=== PATIENT | male | born 1950 | race Caucasian/White ===

== ENCOUNTER 2017-06-14 12:31 | Observation (INO) | payer MEDICARE, OTHER ==
[2017-06-14 12:32] VITALS: BP 158/86; PULSE 105; RESP 18; TEMP 98.8; O2SAT 96
[2017-06-14] MEDS ORDERED: DICL75TA PO (13:01)
[2017-06-14] MEDS ORDERED: TERA10CA3 PO (13:01)
[2017-06-14] MEDS ORDERED: OMEP20TA93 PO (13:01)
[2017-06-14] MEDS ORDERED: MELA5 PO (13:01)
[2017-06-14] MEDS ORDERED: ATOR40TA16 PO (13:01)
[2017-06-14] MEDS ORDERED: FINA5TAB2 PO (13:01)
[2017-06-14] MEDS ORDERED: BACL10TA PO (13:01)
--- NOTE | 2017-06-14 13:03 | PD ---
HPI Chief Complaint: Chest Pain Time Seen by Provider: 12:45 Travel History International Travel<30 days: No Contact w/Intl Traveler<30days: No Traveled to known affect area: No History of Present Illness HPI 66yo M with PMH of BPH, HLD, HTN presents to the ED with c/o chest pain. States it has been there for about 3 weeks but is getting worst. Pain is dull, midsternal and then in left chest there is a sharp pain. Pain is worst with movement. Associated with nausea, diaphoresis, sob. Denies any fever, vomiting , abdominal pain, focal weakness. Said he try to go to PMD but they sent him here. 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 Has had chest pain before but never lasting this long. Denies any PE/DVT. History Past Medical History Influenza Vaccination: Yes Social History Alcohol Use: No Tobacco Use: No Allergies-Medications (Allergen,Severity, Reaction): Coded Allergies: Iodinated Contrast- Oral and IV Dye (Verified Allergy, Unknown, 06/14/17) shellfish derived (Verified Allergy, Unknown, 06/14/17) Reported Meds & Prescriptions Reported Meds & Active Scripts Active Reported Melatonin 5 Mg Tab 3 Mg PO HS Finasteride 5 Mg Tab 5 Mg PO DAILY Do not crush. Terazosin (Terazosin HCl) 10 Mg Cap 10 Mg PO BID Atorvastatin (Atorvastatin Calcium) 40 Mg Tab 40 Mg PO HS Diclofenac Sodium DR (Diclofenac Sodium) 75 Mg Tabdr 75 Mg PO BID Baclofen 10 Mg Tab 10 Mg PO BID PRN Omeprazole 20 Mg Tab 20 Mg PO BID Review of Systems Except as stated in HPI: all other systems reviewed are Neg Physical Exam Narrative GENERAL: 66yo M in mild distress. SKIN: Focused skin assessment warm/dry. HEAD: Atraumatic. Normocephalic. EYES: Pupils equal and round. No scleral icterus. No injection or drainage. ENT: No nasal bleeding or discharge. Mucous membranes pink and moist. NECK: Trachea midline. No JVD. CARDIOVASCULAR: Regular rate and rhythm. No murmur appreciated. RESPIRATORY: No accessory muscle use. Clear to auscultation. Breath sounds equal bilaterally. GASTROINTESTINAL: Abdomen soft, non-tender, nondistended. MUSCULOSKELETAL: No obvious deformities. No clubbing. No cyanosis. No edema. No calf tenderness. NEUROLOGICAL: Awake and alert. No obvious cranial nerve deficits. Motor grossly within normal limits. Normal speech. PSYCHIATRIC: Appropriate mood and affect; insight and judgment normal. Data Data Last Documented VS Vital Signs Date Time Temp Pulse Resp B/P (MAP) Pulse Ox O2 Delivery O2 Flow Rate FiO2 06/14/17 14:09 96 17 149/63 (91) 95 Room Air 06/14/17 12:32 98.8 Orders Orders Basic Metabolic Panel (Bmp) (06/14/17 12:55) B-Type Natriuretic Peptide (06/14/17 12:55) Complete Blood Count With Diff (06/14/17 12:55) Magnesium (Mg) (06/14/17 12:55) Prothrombin Time / Inr (Pt) (06/14/17 12:55) Act Partial Throm Time (Ptt) (06/14/17 12:55) Troponin I (06/14/17 12:55) Chest, Single Ap (06/14/17 12:55) Aspirin (Aspirin) (06/14/17 13:15) Nitroglycerin Sl (Nitrostat Sl) (06/14/17 13:15) Electrocardiogram (06/14/17 12:47) Admit Order (Ed Use Only) (06/14/17 15:06) Labs Laboratory Tests Test 06/14/17 13:00 White Blood Count 3.3 TH/MM3 Red Blood Count 5.00 MIL/MM3 Hemoglobin 14.1 GM/DL Hematocrit 42.2 % Mean Corpuscular Volume 84.3 FL Mean Corpuscular Hemoglobin 28.2 PG Mean Corpuscular Hemoglobin Concent 33.5 % Red Cell Distribution Width 14.2 % Platelet Count 117 TH/MM3 Mean Platelet Volume 8.6 FL Neutrophils (%) (Auto) 65.6 % Lymphocytes (%) (Auto) 24.5 % Monocytes (%) (Auto) 7.9 % Eosinophils (%) (Auto) 1.6 % Basophils (%) (Auto) 0.4 % Neutrophils # (Auto) 2.2 TH/MM3 Lymphocytes # (Auto) 0.8 TH/MM3 Monocytes # (Auto) 0.3 TH/MM3 Eosinophils # (Auto) 0.1 TH/MM3 Basophils # (Auto) 0.0 TH/MM3 CBC Comment DIFF FINAL Differential Comment Prothrombin Time 10.6 SEC Prothromb Time International Ratio 1.0 RATIO Activated Partial Thromboplast Time 24.3 SEC Blood Urea Nitrogen 23 MG/DL Creatinine 1.12 MG/DL Random Glucose 127 MG/DL Calcium Level 8.8 MG/DL Magnesium Level 2.3 MG/DL Sodium Level 140 MEQ/L Potassium Level 4.0 MEQ/L Chloride Level 108 MEQ/L Carbon Dioxide Level 25.7 MEQ/L Anion Gap 6 MEQ/L Estimat Glomerular Filtration Rate 65 ML/MIN Troponin I LESS THAN 0.02 NG/ML B-Type Natriuretic Peptide 51 PG/ML MDM Medical Decision Making Medical Screen Exam Complete: Yes Emergency Medical Condition: Yes Interpretation(s) EKG: Sinus tachycardia at 100bpm. LAD. No ST segment elevation or depression. Differential Diagnosis ACS vs. musculoskeletal pain vs. GERD Narrative Course 66yo M with atypical chest pain. Labs reviewed, WBC 3.3. Troponin negative. BNP normal. CXR negative. Pt given aspirin 325mg and sublingual nitro for pain. Pt to be admitted to chest pain center for serial EKG and cardiac enzymes. Diagnosis Primary Impression: Chest pain Qualified Codes: R07.9 - Chest pain, unspecified Admitting Information Admitting Physician Requests: Deepali Ramos DO Jun 14, 2017 13:03
[2017-06-14 13:15] LABS: AUTOMATED NEUTROPHIL # 2.2 TH/MM3 (1.8-7.7); BASOPHIL % 0.4 % (0.0-2.0); EOSINOPHIL # 0.1 TH/MM3 (0-0.4); EOSINOPHIL % 1.6 % (0.0-4.0); HEMATOCRIT 42.2 % (39.0-51.0); HEMO FLAGS DIFF FINAL; LYMPH % 24.5 % (9.0-44.0); LYMPHOCYTE # 0.8 TH/MM3 (1.0-4.8); MEAN CELL VOLUME 84.3 FL (80.0-100.0); MEAN CORPUSCULAR HEMOGLOBIN 28.2 PG (27.0-34.0); MEAN CORPUSCULAR HGB CONC 33.5 % (32.0-36.0); MONO % 7.9 % (0.0-8.0); NEUT % 65.6 % (16.0-70.0); PLATELET COUNT 117 TH/MM3 (150-450); RED CELL DISTRIBUTION WIDTH 14.2 % (11.6-17.2); WHITE BLOOD COUNT 3.3 TH/MM3 (4.0-11.0)
[2017-06-14] MEDS ORDERED: ASPIRIN 325 MG TAB PO ONE (13:15)
[2017-06-14 13:25] LABS: APTT (PATIENT) 24.3 SEC (24.3-30.1); PROTHROMBIN TIME - PATIENT 10.6 SEC (9.8-11.6)
--- NOTE | 2017-06-14 13:30 | RADRPT ---
EXAM DATE/TIME: 06/14/2017 13:10 [facility] COMPARISON: No previous studies available for comparison. INDICATIONS : Chest pain. MEDICAL HISTORY : None. SURGICAL HISTORY : None. ENCOUNTER: Initial ACUITY: 1 day PAIN SCORE: 10/10 LOCATION: Bilateral chest FINDINGS: Portable AP view of the chest demonstrates a normal-sized cardiac silhouette. No effusion, consolidat ion, or pneumothorax is visualized. The bones and soft tissues demonstrate no acute abnormality. CONCLUSION: No acute cardiopulmonary abnormality is identified. Adrian Patel MD on June 14, 2017 at 13:26 Board Certified Radiologist. This report was verified electronically.
[2017-06-14 13:32] LABS: ANION GAP 6 MEQ/L (5-15); BICARBONATE 25.7 MEQ/L (21.0-32.0); BLOOD UREA NITROGEN 23 MG/DL (7-18); CHLORIDE 108 MEQ/L (98-107); GLOMERULAR FILTRATION RATE 65 ML/MIN (>89); MAGNESIUM 2.3 MG/DL (1.5-2.5); SODIUM (NA) 140 MEQ/L (136-145)
[2017-06-14] MEDS: NITROGLYCERIN 0.4 MG SL 25 TABS/BTL SL PRN ×3 (13:38→14:11)
[2017-06-14 14:09] VITALS: BP 149/63; PULSE 96; RESP 17; O2SAT 95
[2017-06-14] MEDS ORDERED: ACETAMINOPHEN/HYDROcodone 325 MG/7.5 MG TAB PO PRN (15:30)
[2017-06-14] MEDS ORDERED: ACETAMINOPHEN 500 MG CPLT PO PRN (15:30)
[2017-06-14] MEDS ORDERED: ONDANSETRON HCL 4 MG/2 ML VIAL IV PUSH PRN (15:30)
--- NOTE | 2017-06-14 15:57 | HHI.HP ---
[facility] Primary Care Physician Cullen Hopson MD Chief Complaint Chest pain History of Present Illness This is a 66-year-old male that presents to ED via private vehicle with history of BPH, hyperlipidemia with a complaint of chest discomfort. Patient has had a substernal chest discomfort constantly for 3 weeks. Found nothing to really worsen or improve it at home however he states he was given subluminal nitroglycerin in the ED and it has seemed to help however it is still present. Doesn't seem to be exertional. States he works out on a treadmill and elliptical and it has not worsened over last 3 weeks. Has occasional shortness of breath. Denies diaphoresis or nausea. Denies prior history of coronary artery disease. Denies family history of CAD. Patient quit smoking cigarettes 4 years ago. Review of Systems General: Patient denies fevers, chills recent, and recent travel HEENT: Patient denies headache, sore throat, difficulty swallowing. Cardiovascular: Has the chest discomfort as mentioned above. Denies sensation of heart beating rapidly or irregularly. No syncope. Denies diaphoresis. Respiratory: Occasional shortness of breath. Denies shortness of breath or inspirational chest discomfort. Denies coughing wheezing or hemoptysis. GI: Patient denies nausea, vomiting, diarrhea, abdominal pain, bloody stools. Musculoskeletal: Patient denies joint pain or edema. Denies calf pain or edema. Neurovascular: Patient denies numbness, tingling, weakness in extremities. Denies headache. Endocrine: Denies polyuria and polydipsia. Hematologic: Denies easy bruising. Skin: Denies rash or itching. Past Family Social History Allergies: Coded Allergies: Iodinated Contrast- Oral and IV Dye (Verified Allergy, Unknown, 06/14/17) shellfish derived (Verified Allergy, Unknown, 06/14/17) Past Medical History BPH, GERD, and hyperlipidemia. Denies diabetes, hypertension, and CAD. Past Surgical History Noncontributory. Reported Medications Reported Meds & Active Scripts Active Reported Melatonin 5 Mg Tab 3 Mg PO HS Finasteride 5 Mg Tab 5 Mg PO DAILY Do not crush. Terazosin (Terazosin HCl) 10 Mg Cap 10 Mg PO BID Atorvastatin (Atorvastatin Calcium) 40 Mg Tab 40 Mg PO HS Diclofenac Sodium DR (Diclofenac Sodium) 75 Mg Tabdr 75 Mg PO BID Baclofen 10 Mg Tab 10 Mg PO BID PRN Omeprazole 20 Mg Tab 20 Mg PO BID Active Ordered Medications Current Medications Medications (Trade) Dose Ordered Sig/Kathleen Route Start Time Stop Time Status Last Admin (Nitrostat Sl) 0.4 mg Q5M PRN SL 06/14/17 13:15 06/14/17 14:11 (Tylenol) 500 mg Q4H PRN PO 06/14/17 15:30 ([place] 7.5-325 Mg) 1 tab Q4H PRN PO 06/14/17 15:30 (Zofran Inj) 4 mg Q6H PRN IV PUSH 06/14/17 15:30 Family History Denies family history of CAD. Social History Patient quit smoking 4 years ago. Denies alcohol or illicit drug use. Physical Exam Vital Signs Vital Signs Date Time Temp Pulse Resp B/P (MAP) Pulse Ox O2 Delivery O2 Flow Rate FiO2 06/14/17 14:09 96 17 149/63 (91) 95 Room Air 06/14/17 12:32 98.8 105 18 158/86 (110) 96 Physical Exam GENERAL: This is a well-nourished, well-developed patient, in no apparent distress. Patient speaks in clear complete sentences. Patient is pleasant. HEENT: Head is atraumatic and normocephalic. Neck is supple without lymphadenopathy and trachea is midline. No JVD or carotid bruits. CARDIOVASCULAR: Regular rate and rhythm without murmurs, gallops, or rubs. RESPIRATORY: Clear to auscultation. Breath sounds equal bilaterally. No wheezes , rales, or rhonchi. Chest wall is nontender. No use of accessory muscles. GASTROINTESTINAL: Abdomen is nontender, nondistended. Abdomen soft. No obvious pulsatile mass or bruit. No CVA tenderness. Strong femoral pulses bilaterally. Normal bowel sounds in all quadrants. MUSCULOSKELETAL: Patient is moving upper and lower extremities freely. No calf tenderness or edema, no Homans sign. Strong pulses in upper and lower extremities. NEUROLOGICAL: Patient is alert and oriented. Cranial nerves 2-12 are grossly intact. No focal deficits and speech is clear. SKIN: No rash and turgor is normal. Laboratory Laboratory Tests Test 06/14/17 13:00 White Blood Count 3.3 Red Blood Count 5.00 Hemoglobin 14.1 Hematocrit 42.2 Mean Corpuscular Volume 84.3 Mean Corpuscular Hemoglobin 28.2 Mean Corpuscular Hemoglobin Concent 33.5 Red Cell Distribution Width 14.2 Platelet Count 117 Mean Platelet Volume 8.6 Neutrophils (%) (Auto) 65.6 Lymphocytes (%) (Auto) 24.5 Monocytes (%) (Auto) 7.9 Eosinophils (%) (Auto) 1.6 Basophils (%) (Auto) 0.4 Neutrophils # (Auto) 2.2 Lymphocytes # (Auto) 0.8 Monocytes # (Auto) 0.3 Eosinophils # (Auto) 0.1 Basophils # (Auto) 0.0 CBC Comment DIFF FINAL Differential Comment Prothrombin Time 10.6 Prothromb Time International Ratio 1.0 Activated Partial Thromboplast Time 24.3 Blood Urea Nitrogen 23 Creatinine 1.12 Random Glucose 127 Calcium Level 8.8 Magnesium Level 2.3 Sodium Level 140 Potassium Level 4.0 Chloride Level 108 Carbon Dioxide Level 25.7 Anion Gap 6 Estimat Glomerular Filtration Rate 65 Troponin I LESS THAN 0.02 B-Type Natriuretic Peptide 51 Result Diagram: 06/14/17 1300 06/14/17 1300 Imaging Last 48 hours Impressions Chest X-Ray 06/14/17 1255 Signed Impressions: Service Date/Time: Wednesday, June 14, 2017 13:10 - CONCLUSION: No acute cardiopulmonary abnormality is identified. Adrian Patel MD Course EKGs have sinus rhythm without significant ST segment depression or elevation. Caprini VTE Risk Assessment Caprini VTE Risk Assessment: Mod/High Risk (score >= 2) Caprini Risk Assessment Model Point Value = 1 Point Value = 2 Point Value = 3 Point Value = 5 Age 41-60 Minor surgery BMI > 25 kg/m2 Swollen legs Varicose veins or History of unexplained or recurrent spontaneous Oral contraceptives or hormone replacement Sepsis (< 1 month) Serious lung disease, including pneumonia (< 1 month) Abnormal pulmonary function Acute myocardial infarction Congestive heart failure (< 1 month) History of inflammatory bowel disease Medical patient at bed rest Age 61-74 Arthroscopic surgery Major open surgery (> 45 min) Laparoscopic surgery (> 45 min) Malignancy Confined to bed (> 72 hours) Immobilizing plaster cast Central venous access Age >= 75 History of VTE Family history of VTE Factor V Leiden Prothrombin [id number] Lupus anticoagulant Anticardiolipin antibodies Elevated serum homocysteine Heparin-induced thrombocytopenia Other congenital or acquired thrombophilia Stroke (< 1 month) Elective arthroplasty Hip, pelvis, or leg fracture Acute spinal cord injury (< 1 month) Prophylaxis Regimen Total Risk Factor Score Risk Level Prophylaxis Regimen 0-1 Low Early ambulation 2 Moderate Order ONE of the following: *Sequential Compression Device (SCD) *Heparin 5000 units SQ BID 3-4 Higher Order ONE of the following medications: *Heparin 5000 units SQ TID *Enoxaparin/Lovenox 40 mg SQ daily (WT < 150 kg, CrCl > 30 mL/min) *Enoxaparin/Lovenox 30 mg SQ daily (WT < 150 kg, CrCl > 10-29 mL/min) *Enoxaparin/Lovenox 30 mg SQ BID (WT < 150 kg, CrCl > 30 mL/min) AND/OR *Sequential Compression Device (SCD) 5 or more Highest Order ONE of the following medications: *Heparin 5000 units SQ TID (Preferred with Epidurals) *Enoxaparin/Lovenox 40 mg SQ daily (WT < 150 kg, CrCl > 30 mL/min) *Enoxaparin/Lovenox 30 mg SQ daily (WT < 150 kg, CrCl > 10-29 mL/min) *Enoxaparin/Lovenox 30 mg SQ BID (WT < 150 kg, CrCl > 30 mL/min) AND *Sequential Compression Device (SCD) Assessment and Plan Assessment and Plan * Chest pain: History of 3 weeks of constant chest discomfort appears to be atypical. Seen by Dr. Gerald Johnson of cardiology and the chest and center. Will undergo a Nigel protocol ETT and CT of the chest. Patient be discharged home with instructions to follow-up with PCP if these are unremarkable. * Hyperlipidemia: Continue current medication. Patient is stable this time. Is agreeable to this plan. Philip Mehta Jun 14, 2017 15:57
[2017-06-14 16:51] VITALS: BP 124/75; PULSE 77; RESP 18; TEMP 98.1; O2SAT 95; O2SAT 96
--- NOTE | 2017-06-14 17:00 | HHI.DCPOC ---
Discharge Care Plan Diagnosis: (1) Chest pain (2) Hyperlipidemia Goals to Promote Your Health * To prevent worsening of your condition and complications * To maintain your health at the optimal level Directions to Meet Your Goals Take your medications as prescribed Follow your dietary instruction Follow activity as directed Keep your appointments as scheduled Take your immunizations and boosters as scheduled If your symptoms worsen call your PCP, if no PCP go to Urgent Care Center or Emergency Room Smoking is Dangerous to Your Health. Avoid second hand smoke Call the 24-hour hour crisis hotline for domestic abuse at Philip Mehta Jun 14, 2017 17:00
--- NOTE | 2017-06-14 17:37 | RADRPT ---
EXAM DATE/TIME: 06/14/2017 17:20 [facility] COMPARISON: No previous studies available for comparison. INDICATIONS : Substernal chest pain for three days. RADIATION DOSE: 9.59 CTDIvol (mGy) ; Patient body habitus MEDICAL HISTORY : Hypertension. SURGICAL HISTORY : Cholecystectomy. ENCOUNTER: Initial ACUITY: 3 days PAIN SCALE: 5/10 LOCATION: substernal chest TECHNIQUE: Volumetric scanning of the chest was performed. Using automated exposure control and adjustment of t he mA and/or kV according to patient size, radiation dose was kept as low as reasonably achievable to obtain optimal diagnostic quality images. DICOM format image data is available electronically for r eview and comparison. Follow-up recommendations for detected pulmonary nodules are based at a minimum on nodule size and pa tient risk factors according to Fleischner Society Guidelines. FINDINGS: LUNGS: There is no consolidation or pneumothorax. There is a calcified granuloma in the right midlung zone. In the left upper lobe abutting the left pulmonary artery is a 9 mm nodule with eccentric calcificati on. It has smooth margins. PLEURAE: There is no pleural thickening or pleural effusion. MEDIASTINUM: The heart and great vessels demonstrate no acute abnormality. There are calcified mediastinal and ri ght hilar lymph nodes. AXILLAE: Within normal limits. No lymphadenopathy. MUSCULOSKELETAL: Degenerative changes are present throughout the thoracic spine. MISCELLANEOUS: The visualized upper abdominal organs demonstrate no acute abnormality. Patient is postcholecystectom y. Spleen is mildly enlarged measuring 14.3 cm. There are bilateral hypodense thyroid nodules measuri ng 9 mm each. CONCLUSION: 1. No acute finding is identified on this noncontrast examination to explain the chest pain. 2. Findings indicative of prior granulomatous infection. There is an eccentric calcified 9 mm nodule in the left upper lobe that could represent a pulmonary nodule or partially calcified mediastinal lym ph node. Suggest correlating with any prior imaging studies. If none are available suggest 3 month fo llowup noncontrast chest CT to confirm stability. 3. There are bilateral thyroid nodules measure 9 mm each. Adrian Patel MD on June 14, 2017 at 17:29 Board Certified Radiologist. This report was verified electronically.
--- NOTE | 2017-06-15 14:44 | EKG ---
Date Performed: 06/14/2017 Time Performed: 12:47:01 PTAGE: 66 years EKG: SINUS TACHYCARDIA INCOMPLETE RIGHT BUNDLE BRANCH BLOCK ABNORMAL RHYTHM ECG NO PREVIOUS TRACING DOCTOR: Arely Casanova Interpretating Date/Time 06/15/2017 14:40:39
--- NOTE | 2017-06-15 21:46 | TR ---
Date Performed: 06/14/2017 Time Performed: 15:55:31 DOCTOR: Marilee Griffin DRUG LIST: CLINICAL HISTORY: REASON FOR TEST: Chest pain REASON FOR ENDING: OBSERVATION: CONCLUSION: MYRNA PROTOCOL ETT. NO CP. TEST STOPPED AFTER EXCEEDING GOAL HR SECONDARY TO SOB AND LEG FATIGUE.Maximum KV=638 % Max HR Achieved=98.0% Maximum SC=915/58 Total Exercise Time=10:06 COMMENTS:
== END 2017-06-14 19:15 | disposition home or self-care (01) ==
LOC: NEPC 12:31 → NEDA 15:07 → NEPGCP 16:32
PROVIDERS: ADMIT Internal Medicine Cardiovascular Disease; ATTEND Internal Medicine Cardiovascular Disease
DX: R07.89 Other chest pain (principal); E78.5 Hyperlipidemia, unspecified; R11.0 Nausea; R61 Generalized hyperhidrosis; R00.0 Tachycardia, unspecified; I45.10 Unspecified right bundle-branch block; R06.02 Shortness of breath; I10 Essential (primary) hypertension; E04.1 Nontoxic single thyroid nodule; N40.0 Benign prostatic hyperplasia without lower urinary tract symptoms; Z87.891 Personal history of nicotine dependence; Z79.899 Other long term (current) drug therapy
CPT/HCPCS: 71010; 71250; 80048; 83735; 83880; 84484; 85025; 85610; 85730; 93005; 93017; 99285; G0378